=== PATIENT | female | born 2000 | race Two or more races ===

== ENCOUNTER 2022-03-08 08:49 | Emergency (ER) | payer OTHER ==
[~2022-03-08] VITALS: Ht 160 cm; Wt 108.4 kg
[2022-03-08 09:19] VITALS: BP 145/96
--- NOTE | 2022-03-08 09:19 | NUR ---
BIBS C/O R FOOT PAIN X 1 WEEK 8/10 PAIN ON PAIN SCALE.
--- NOTE | 2022-03-08 09:53 | NUR ---
Patient discharged to home in stable condition. Written and verbal after care instructions given. Patient verbalizes understanding of instruction.
== END 2022-03-08 09:55 | disposition home or self-care (01) ==
LOC: ER 08:58
DX: S93.601A Unspecified sprain of right foot, initial encounter (principal); Y93.01 Activity, walking, marching and hiking; Y93.89 Activity, other specified; Y92.89 Other specified places as the place of occurrence of the external cause; Y99.8 Other external cause status
CPT/HCPCS: 73630-TC